=== PATIENT | female | born 1960 | race Caucasian/White ===

== ENCOUNTER 2016-05-31 11:21 | Emergency (ER) | payer OTHER ==
[~2016-05-31] VITALS: Ht 165.1 cm; Wt 70.9 kg
[2016-05-31 11:26] VITALS: BP 117/71; PULSE 63; RESP 20; O2SAT 98
--- NOTE | 2016-05-31 11:38 | ED.REPORT ---
HPI-Abd Pain F 40 and Over Date of Service May 31, 2016 ED Provider: History of Present Illness: right side area pain, started 2 days ago. seen at [facility] given antibiotics no improvement. is coughing and coughing makes it worse. has been in bed for about a week. had cough and cold, started as a cold then d/c in nose and went to chest again worse. 8/10 pain with coughing, no hx of asthma SOB with stairs Nursing Notes Stated Complaint: RIKGHT ABDOMINAL PAIN Chief Complaint: General Complaint Nursing Notes Reviewed: Yes Allergies: Coded Allergies: doxycycline (Verified Allergy, Intermediate, THROAT BURNING, UPSET STOMACH , 08/12/15) General Time Seen by MD: 11:37 Chief Complaint Other (right abd rib pain) Hx Obtained From: Patient Sudden in Onset?: No Past Medical History Past Medical History Denies: Asthma, Diabetes mellitus Past Surgical History Reports: Hysterectomy Smoking History Never Smoker Social History weekends 4 drinks a day Alcohol Use: "Social" Drug Use: Denies drug use Other Social History: Occupation no work or school05/31/2016 Ambulatory Status Independent Review of Systems Basic Review of Systems Eyes: Vision NL, No discharge ENT: Hearing NL, No pain, No nasal congestion, No pharyngeal pain Hematologic: No bleeding, No bruising Endocrine: No cold intolerance, No heat intolerance, No weight gain, No weight loss Skin: No bruising, No rash, No itch Allergy / Immune: No allergy Neurologic: NL mental status, No weakness, No numbness Psychiatric: Normal thought content Physical Exam Vital Signs Vital Signs (First) Date Time Temp Pulse Resp B/P Pulse Ox O2 Delivery O2 Flow Rate FiO2 05/31/16 11:26 36.6 63 20 117/71 98 Room Air Initial VS: Reviewed, Vital signs normal Head / Eyes: Atraumatic, Normocephalic, PERRL ENT: Mucous membranes moist, Conjunctiva normal, No scleral icterus Neck: Supple, Non-tender, Full range of motion Lymphatic: No lymphadenopathy Extremities: Vascular intact, Neuro intact, No swelling, No tenderness Skin: Warm, Dry, No cyanosis Neurologic: Alert, Oriented, Nonfocal Psychiatric: Mood/affect normal, Behavior normal, Normal thought content General/Constitutional: Awake, Alert, No acute distress, Well appearing, Well developed, Well hydrated Respiratory / Chest: Atraumatic, Breath sounds NL decreased breath sounds throughout, mild rales right lower base Cardiovascular: Heart rate NL, Regular rhythm, Heart sounds NL, No gallop Abdomen: Atraumatic, Soft, Non-tender Back: Atraumatic, Inspection NL, Full range of motion Interpretation & Diagnostics Interpretation & Diagnostics: US does not show abnormalities in gallbladder Lab Results Interpretation Result Diagram: 05/31/16 1205 05/31/16 1205 Test 05/31/16 12:05 White Blood Count 5.3th/mm3 (3.8-10.1) Red Blood Count 4.13mil/mm3 (3.90-5.20) Hemoglobin 12.5g/dL (12.0-15.6) Hematocrit 37.6% (35.0-46.0) Mean Corpuscular Volume 91.0fL (81-100) Mean Corpuscular Hemoglobin 30.3pg (27.0-35.0) Mean Corpuscular Hemoglobin Concent 33.2% (32.0-37.0) Red Cell Distribution Width 12.2% (12.3-15.4) Platelet Count 293bil/L (150-400) Neutrophils (%) (Auto) 64.0% (40-74) Lymphocytes (%) (Auto) 22.5% (14-46) Monocytes (%) (Auto) 9.0% (4-12) Eosinophils (%) (Auto) 3.9% (0-5) Basophils (%) (Auto) 0.6% (0-3) D-Dimer < 0.5mg/L (<0.50) Sodium Level 141mEq/L (134-144) Potassium Level 4.3mEq/L (3.5-5.2) Chloride Level 100mEq/L (97-108) Carbon Dioxide Level 30mmol/L (18-29) Blood Urea Nitrogen 13mg/dL (6-24) Creatinine 1.00mg/dL (0.57-1.00) Estimat Glomerular Filtration Rate 83mL/min (>59) Glucose Level 128mg/dL (60-99) Calcium Level 9.4mg/dL (8.5-10.1) Total Bilirubin 0.6mg/dL (0.0-1.2) Aspartate Amino Transf (AST/SGOT) 16U/L (0-50) Alanine Aminotransferase (ALT/SGPT) 12U/L (0-32) Alkaline Phosphatase 69U/L (25-150) Total Protein 7.2g/dL (6.4-8.4) Albumin 4.6g/dL (3.4-5.0) Amylase Level 29U/L (28-100) Lipase 21U/L (13-60) X-Ray Chest Interpretation Chest Xray Interpretation: INDICATIONS: cough, pain TECHNIQUE: 2 views of the chest were acquired. COMPARISON: [facility], CR, XR [employer] PA CXR MIN 3VW LT, 08/12/2015, 23:46. FINDINGS: Surgical changes and devices: None. Lungs and pleura: No pleural effusions or pneumothorax. Lungs are clear. Mediastinum: Mediastinal contours are normal. Heart size is normal. Bones and chest wall: No suspicious bony abnormalities. Soft tissues appear unremarkable. IMPRESSION: No acute process. Discharge & Departure Primary Impression: Pneumonia Pneumonia type: due to unspecified organism Laterality: right Lung location : lower lobe of lung Qualified Code: J18.9 - Pneumonia, unspecified organism Disposition: Home Patient Instructions: Community-acquired Pneumonia (ED) Additional Instructions: The x-ray official read does not show any sign of pneumonia. But clinically, this appears to be a pneumonia. Your labs are normal. Your d-dimer is normal, which means no sign of a blood clot. You have had a good response to the albuterol nebulizer. Continue with the inhaler 2 puffs every 4 hours as needed. Also ibuprofen 800 mg 3 times a day for 5 days. Please follow with primary care for a recheck in 3 to 5 days. Return with any concerns. Continue with the antibiotics. REturn with fever, vomiting or any other concerns. Referrals: Fermín Macdonald MD (Family) EDSupervising Provider for APC: Saray Campos MD copies to: Fermín Macdonald MD, Sue ARNP May 31, 2016 11:38
[2016-05-31 12:10] LABS: BASOPHILS % (AUTO) 0.6 % (0-3); EOSINOPHILS % (AUTO) 3.9 % (0-5); Mean Corpuscular Hemoglobin 30.3 pg (27.0-35.0); Platelet Count 293 bil/L (150-400)
[2016-05-31] MEDS ORDERED: Albuterol 2.5 mg/3 mL Inhalation Solution NEB ONE (13:05)
--- NOTE | 2016-05-31 13:05 | DRSVH ---
PROCEDURE: X-RAY CHEST, TWO VIEWS ([id number]) INDICATIONS: cough, pain TECHNIQUE: 2 views of the chest were acquired. COMPARISON: [facility], CR, XR [employer] PA CXR MIN 3VW LT, 08/12/2015, 23:46. FINDINGS: Surgical changes and devices: None. Lungs and pleura: No pleural effusions or pneumothorax. Lungs are clear. Mediastinum: Mediastinal contours are normal. Heart size is normal. Bones and chest wall: No suspicious bony abnormalities. Soft tissues appear unremarkable. IMPRESSION: No acute process. Dictated by: Joselyn King M.D. on 05/31/2016 at 13:03 Approved by: Joselyn King M.D. on 05/31/2016 at 13:03
--- NOTE | 2016-05-31 15:05 | DRSVH ---
PROCEDURE: US ABDOMEN INDICATIONS: ? gallbladder TECHNIQUE: Real-time scanning was performed of the abdominal and retroperitoneal organs, with image documentatio n. COMPARISON: CT, ABD/PELVIS W/CON (PN[facility]), 04/17/2007, 0:07. FINDINGS: Liver length: 17.49 cm Gallbladder Wall Thickness: 2.30 mm CHD: 1.50 mm CBD: 2.70 mm Spleen length: 7.22 cm Right kidney length: 8.65 cm Left kidney length: 8.63 cm Aorta(Proximal): 1.84 cm Aorta(Mid): 1.67 cm Aorta(Distal): 1.43 cm RCIA: 1.00 cm LCIA: 1.05 cm Liver: Liver is normal in size and homogeneous in echotexture. Gallbladder: Gallbladder polyp measuring 3 mm otherwise normal gallbladder. Biliary ducts: Intrahepatic bile ducts are non-dilated. Extrahepatic bile duct caliber is normal. Normal is 6-7 mm or less in diameter, or 10 mm or less post-cholecystectomy. Pancreas: Visualized portions of the pancreas are sonographically normal. Spleen: Spleen is normal in size and homogeneous in echotexture. Kidneys: Kidneys are normal in size and echotexture. No hydronephrosis or nephrolithiasis. No danny d masses. Aorta: Visualized aorta is normal in caliber at less than 3 cm. Iliacs: Proximal common iliac arteries are normal in caliber at less than 2.5 cm. IVC: Intrahepatic inferior vena cava is patent. Miscellaneous: No free abdominal fluid. IMPRESSION: Small gallbladder polyp. Dictated by: Greg Porras RRA Interpreted: Nichole Peterson MD on 05/31/2016 at 15:04 Transcribed by: KAJAL on 05/31/2016 at 15:04 Approved by: Nichole Peterson MD, PhD on 05/31/2016 at 16:48
== END 2016-05-31 14:04 | disposition home or self-care (01) ==
LOC: SED 12:23
DX: J18.9 Pneumonia, unspecified organism (principal); Z88.1 Allergy status to other antibiotic agents
CPT/HCPCS: 36415; 71020; 76700; 80053; 82150; 83690; 85025; 85379; 99285; J7613